=== PATIENT | female | born 2000 | race Caucasian/White ===

== ENCOUNTER 2022-01-19 01:15 | Emergency (ER) | payer BC, SELFPAY ==
--- NOTE | ~2022-01-19 | CT_ITS ---
EXAMINATION: CT brain wo con DATE: 01/19/2022 02:28 INDICATION: Confusion, difficulty waking after alcohol intake. Possible fall. TECHNIQUE: Computed tomography (CT) of the head was performed without intravenous contrast. The mA wa s adjusted according to patient size. Iterative reconstruction technique was employed. Exam dose: 68 1.00 mGy-cm total exam DLP. COMPARISON: None FINDINGS: No intracranial mass lesion or hemorrhage or cerebrovascular accident, midline shift or mas s effect is evident. Normal ventricular size. Normal rawls-white matter differentiation. No apparent s ubdural or epidural hematoma. The mastoid air cells are normally developed and aerated. Included paranasal sinuses are normally dev eloped and aerated. No fracture or bone destruction of the cranial vault. IMPRESSION: No skull fracture or significant intracranial abnormality Reviewed, dictated and finalized at [facility]. Reviewed, dictated and finalized at [facility].
--- NOTE | ~2022-01-19 | XR_ITS ---
XR knee LT 3V DATE: 01/19/2022 02:46 INDICATION: Left knee injury, abrasion TECHNIQUE: 3 views including crosstable lateral COMPARISON: None FINDINGS: No fracture or dislocation or significant joint effusion is evident. No periosteal reaction or bone destruction. No radiopaque intra-articular loose body or chondrocalcinosis. IMPRESSION: No fracture or dislocation Reviewed, dictated and finalized at [facility]. IMPRESSION: No fracture or dislocation
--- NOTE | ~2022-01-19 | CT_ITS ---
EXAMINATION: CT cervical spine wo con DATE: 01/19/2022 02:29 INDICATION: Fall. Confusion. Altered consciousness. Difficulty waking after alcohol intake. TECHNIQUE: Computed tomography (CT) of the cervical spine was performed without intravenous contrast. Automated exposure control and iterative reconstruction technique were employed. Exam dose: 461.96 mGy-cm total exam DLP. COMPARISON: None FINDINGS: Normal alignment of the cervical spine. No fracture or dislocation or locked facet or preve rtebral soft tissue swelling. C1 and C2 are normally aligned and the odontoid process is intact. Cerv ical interspaces are preserved.. IMPRESSION: Negative Reviewed, dictated and finalized at [facility]. Reviewed, dictated and finalized at [facility]. IMPRESSION: Negative
[2022-01-19 01:27] VITALS: BP 111/75; PULSE 81; RESP 14; O2SAT 97
--- NOTE | 2022-01-19 01:43 | ECG_ITS ---
Measurements Intervals [place] Rate: 84 P: 146 [place]: 212 QRS: 131 QRSD: 101 T: 147 QT: 381 QTc: 452 Interpretive Statements SINUS RHYTHM WITH FIRST DEGREE AV BLOCK MARKED RIGHT AXIS DEVIATION [QRS AXIS > 100] LOW QRS VOLTAGE IN EXTREMITY LEADS [QRS DEFLECTION < 0.5 mV IN LIMB LEADS] NO PREVIOUS ECG AVAILABLE FOR COMPARISON Electronically Signed On 01-19-2022 13:42:01 CDT by Kusum Rivas M.D.
--- NOTE | 2022-01-19 01:46 | ED.ALCOHOL ---
HPI - Alcohol General Chief Complaint: Alcohol Stated Complaint: unspecified Time Seen by Provider: 01/19/22 01:38 Source: family History of Present Illness HPI narrative: Patient presents for altered mental status. Per father patient was out with her friend who just turned 21 they went to couple different bars when she returned home she was not waking up father was concerned and brought her to the ER for evaluation. The reports that patient fell down a couple times and unclear surrounding circumstances. Father does not note any blood at home reports she is usually a healthy individual and does not take any medications on a regular basis Related Data Allergies Allergy/AdvReac Type Severity Reaction Status Date / Time No Known Allergies Allergy Unverified 05/22/15 21:15 Review of Systems Review of Systems: ROS unobtainable: Yes unobtainable due to medical condition PMF Past Medical History Medical History (Updated 01/19/22 @ 07:34 by Michael Atwood MD) Patient denies significant medical history Social History Social History (Updated 01/19/22 @ 01:47 by Michael Atwood MD) Living arrangements: with family Exam Narrative: GENERAL: Responsive to noxious stimuli HEAD: Normocephalic, hematoma noted on the forehead no active bleeding no open or draining wounds EYES: PERRLA ENT: Nares clear, no rhinorrhea or epistaxis. Mucous membranes moist. NECK: Supple. No masses. No JVD CHEST: Clear to auscultation. No respiratory distress. No wheezes rales or rhonchi HEART: Regular rate and rhythm. No murmur heard. Normal peripheral pulses. ABDOMEN: Soft, nontender, nondistended EXTREMITIES: Normal range of motion. Abrasion to the left knee SKIN: Warm, dry, no rash. NEURO: Responsive to noxious stimuli Course Reevaluation(s) Reevaluation #1: No significant change in patient's exam c-collar was removed family updated on results thus far Date: 01/19/22 Time: 03:10 Reevaluation #2: Patient is awake talkative reports she drank with her friends last night she had no additional concerns. Patient discharged with family Date: 01/19/22 Time: 07:31 Vital Signs Vital signs: Vital Signs Pulse Rate 81 01/19/22 01:27 Respiratory Rate 14 01/19/22 01:27 Blood Pressure 111/75 01/19/22 01:27 Pulse Oximetry 97 04/30/22 01:27 Temperature 36.3 C L 01/19/22 05:51 Pulse Rate 100 01/19/22 06:45 Respiratory Rate 18 01/19/22 06:45 Blood Pressure 121/89 01/19/22 06:45 Pulse Oximetry 98 01/19/22 06:45 MDM - Alcohol MDM Narrative Medical decision making narrative: H&P as above, vss, pt looks clinically well, exam small hematoma on the forehead and abrasion of the left knee, labs with elevated alcohol otherwise clinically unremarkable that he, img without acute process, additional labs/img considered, symptomatic relief available as needed, on reevaluation pt continues to looks clinically well. Suspect alcohol intoxication, dns intracranial hemorrhage, fracture, dislocation. plan to tx/monitor as op w/ pcm f/u findings/plan discussed with pt, pt agree/comfortable with plan, return precautions given Lab Data Result diagrams: 01/19/22 02:11 01/19/22 02:11 Labs: Lab Results 01/19/22 01/19/22 01/19/22 Range/Units 02:11 02:11 02:11 WBC 6.4 (4.5-10.0) K/mm3 RBC 4.64 (4.2-5.4) M/mm3 Hgb 13.9 (12.0-15.0) g/dL Hct 41.8 (37.0-47.0) % MCV 90.1 (80-100) fl MCH 30.0 (26-34) pg MCHC 33.3 (32-36) g/dl RDW 12.0 (11.5-14.5) % Plt Count 244 (150-375) k/mm3 MPV 10.2 (7.4-10.4) fl Immature Gran % (Auto) 0.5 (0-0.5) % Neut % (Auto) 73.7 H (45.5-73.1) % Lymph % (Auto) 21.7 (18.3-44.2) % [place] % (Auto) 3.3 (2.6-8.5) % Eos % (Auto) 0.3 (0-4.4) % Baso % (Auto) 0.5 (0.2-1.2) % Lymph # (Auto) 1.38 (0.9-3.2) K/mm3 [place] # (Auto) 0.2 (0.1-0.6) K/mm3 Eos # (Auto) 0.0 (0-0.3) K/mm3 Baso # (Auto) 0
[2022-01-19 02:16] VITALS: PULSE 74
--- NOTE | 2022-01-19 02:18 | PC.NURSE ---
Pt arrived to the ED slumped over in the front of the vehicle and had to be pulled from car by this RN and two others. Per pt father the pt was out drinking celebrating a friend's birthday. Pt will withdraw from pain but that is the only response at this time. Pt placed in c collar in room due to reports of fall. Pt maintaining airway at this time with suction ready at the bedside. Pt father is at the bedside. Will continue to monitor.
--- NOTE | 2022-01-19 02:21 | PC.NURSE ---
Abrasions noted to left knee as well. No visible injuries to her head at this time.
[2022-01-19 02:22] LABS: Basophils Percent Auto 0.5 % (0.2-1.2); Eosinophils Percent Auto 0.3 % (0-4.4); Hematocrit 41.8 % (37.0-47.0); Hemoglobin 13.9 g/dL (12.0-15.0); Immature Granulocyte Absolute 0.03 K/mm3 (0.00-0.031); Immature Granulocyte Percent A 0.5 % (0-0.5); Lymphocytes Absolute Auto 1.38 K/mm3 (0.9-3.2); Lymphocytes Percent Auto 21.7 % (18.3-44.2); Mean Corpuscular HGB Conc 33.3 g/dl (32-36); Mean Corpuscular Volume 90.1 fl (80-100); Mean Platelet Volume 10.2 fl (7.4-10.4); Monocytes Absolute Auto 0.2 K/mm3 (0.1-0.6); Monocytes Percent Auto 3.3 % (2.6-8.5); Neutrophils Absolute Auto 4.7 K/mm3 (1.3-6.7); Neutrophils Percent Auto 73.7 % (45.5-73.1); Platelet Count Result 244 k/mm3 (150-375); Red Blood Count 4.64 M/mm3 (4.2-5.4); White Blood Count 6.4 K/mm3 (4.5-10.0)
[2022-01-19 02:24] LABS: Add Urine Microscopic? NO; Appearance Urine Clear (Clear); Bilirubin Urine Negative (Negative); Blood Urine Negative (Negative); Color Urine Straw (Yellow); Glucose Urine UA Negative (Negative); Ketones Urine Negative (Negative); Leukocyte Esterase Ur Negative LEU/UL (Negative); Nitrate Urine Negative (Negative); Protein Urine Negative (Negative); Specific Grav Ur 1.005 (1.001-1.035); Urobilinogen Urine Negative mg/dL (<2.0)
[2022-01-19 02:34] LABS: Acetaminophen < 10 ug/mL (10-30); Ethanol 278 mg/dL (<10); Salicylate < 1.0 mg/dL (2-20)
[2022-01-19 02:58] LABS: Alanine Aminotransferase 15 U/L (4-35); Albumin Level 4.4 g/dL (3.5-5.1); Alkaline Phosphatase 52 U/L (38-126); Anion Gap 13 mmol/L (8-16); Aspartate Amino Transferase 28 U/L (14-36); Bilirubin,Total 0.4 mg/dL (0.2-1.3); Blood Urea Nitrogen 11 mg/dL (7-17); Calcium 7.8 mg/dL (8.4-10.2); Carbon Dioxide 23 mmol/L (22-30); Chloride 105 mmol/L (98-107); Estimated CRCL calculation 127 ml/min; Estimated Glomerular Filt Rate > 60; Glucose 113 mg/dL (65-110); Potassium 3.2 mmol/L (3.4-5.0); Sodium 141 mmol/L (137-145)
[2022-01-19] MEDS: SODIUM CHLORIDE 0.9% IV 1,000 ML 999 ML IV CONT (03:01)
[2022-01-19 03:17] VITALS: BP 121/85; PULSE 94; RESP 16; O2SAT 97
--- NOTE | 2022-01-19 03:44 | PC.NURSE ---
Verbal order received from EDP at the bedside that it is ok to removed c collar.
[2022-01-19 04:23] LABS: Barbiturate Screen Urine Negative (Negative); Benzodiazepines Screen Urine Negative (Negative)
[2022-01-19 04:24] LABS: Amphetamine Screen Urine Negative (Negative); Cannabinoid Screen Urine Positive (Negative); Cocaine Screen Urine Negative (Negative); Methadone Screen Urine Negative (Negative); Opiate Screen Urine Negative (Negative); Phencyclidine Screen Urine Negative (Negative)
[2022-01-19 05:51] VITALS: BP 103/62; PULSE 84; RESP 16; TEMP 36.3; O2SAT 96
[2022-01-19 06:45] VITALS: BP 121/89; PULSE 100; RESP 18; O2SAT 98
== END 2022-01-19 07:49 | disposition home or self-care (01) ==
PROVIDERS: Emergency Provider Emergency Medicine
DX: S00.83XA Contusion of other part of head, initial encounter (principal); S80.212A Abrasion, left knee, initial encounter; F10.120 Alcohol abuse with intoxication, uncomplicated; Y90.8 Blood alcohol level of 240 mg/100 ml or more; I44.0 Atrioventricular block, first degree; W19.XXXA Unspecified fall, initial encounter
CPT/HCPCS: 36415; 51701; 70450; 72125; 73562; 80053; 80307; 81003; 85025; 93005; 96360; 96361; 99284; J7030